=== PATIENT | female | born 1990 | race Two or more races ===

== ENCOUNTER 2016-09-28 08:44 | Emergency (ER) | payer MEDICAID ==
[~2016-09-28] VITALS: Ht 157.5 cm; Wt 58.1 kg
[~2016-09-28 08:44] MED LIST: CEPHALEXIN500 MG ORAL; NKM; ZANTAC150 MG ORAL; ZOFRAN ODT4 MG ORAL
[2016-09-28 08:46] VITALS: BP 125/81
[2016-09-28] MEDS ORDERED: ACETAMINOPHEN-1 EAC1 ORAL (09:08)
[2016-09-28] MEDS ORDERED: PREDNISONE20 MG ORAL (09:08)
[2016-09-28] MEDS ORDERED: ACYCLOVIR800 MG ORAL (09:08)
[2016-09-28] MEDS ORDERED: OFLOXACIN5 ML LEFT EAR (09:08)
[2016-09-28 09:17] VITALS: BP 126/79
--- NOTE | 2016-09-28 10:17 | Emergency Room Report ---
History of Present Illness General Chief Complaint: Pain Source: Patient Present Illness HPI 25-year-old female presents ED for evaluation. Patient states she is having pain in her left ear and swelling to the left side of her face with facial droop. States symptoms started yesterday. Patient notes symptoms started with pain in the left ear. Patient denies any fevers or chills. Denies sick contacts or recent travel. Pain is a 10 out of 10, sharp, nonradiating. No other aggravating relieving factors. Denies any other associated symptoms Allergies: Coded Allergies: No Known Allergies (Unverified , 05/26/15) Patient History Past Medical History: none Past Surgical History: none Pertinent Family History: none Social History: Denies: smoking, alcohol use, drug use Last Menstrual Period: One week ago Now: No Immunizations: UTD Reviewed Nursing Documentation: PMH: Agreed, PSxH: Agreed Nursing Documentation-PMH Past Medical History: No Stated History Review of Systems All Other Systems: negative except mentioned in HPI Physical Exam Vital Signs Date Time Temp Pulse Resp B/P (MAP) Pulse Ox O2 Delivery O2 Flow Rate FiO2 09/28/16 08:46 98.4 97 16 125/81 97 Room Air Sp02 EP Interpretation: reviewed, normal General Appearance: no apparent distress, alert, GCS 15, non-toxic Head: normocephalic Eyes: bilateral eye normal inspection, bilateral eye PERRL ENT: hearing grossly normal, normal pharynx, no angioedema, normal voice, other - vesicular lesions noted to L ear canal. swollen. TM unremarkable Neck: normal inspection Respiratory: normal inspection Cardiovascular #1: normal inspection Gastrointestinal: normal inspection Rectal: deferred Genitourinary: no CVA tenderness Musculoskeletal: normal inspection Neurologic: alert, oriented x3, responsive, motor strength/tone normal, sensory intact, speech normal Psychiatric: normal inspection Skin: normal inspection Lymphatic: normal inspection Medical Decision Making Diagnostic Impression: Primary Impression: Margot Vargas syndrome (geniculate herpes zoster) Additional Impression: Otitis externa Qualified Codes: H60.502 - Unspecified acute noninfective otitis externa, left ear ER Course Hospital Course 25-year-old M presents to ED with pain L ear. with L facial swelling, facial droop Differential diagnoses include: cellulitis, otitis media, bells palsy Clinical course Patient placed on stretcher. After initial history, physical exam reveals a young female in no acute distress. Left ear canal is erythematous and swollen. Tender to speculum insertion. There is some vesicular lesions noted to be ear canal. TM unremarkable There is some evidence of a facial droop on the left side. However patient can raise her eyebrows and close her left eye. Suspicion for bells palsy is low. However there is concern for zoster/Margot Vargas given the facial paralysis and vesicular lesions in the left ear We will treat accordingly and prescribed antivirals and prednisone. Will also prescribe ofloxacin otic. Recommend followup with PMD/ENT Diagnosis - Margot Vargas syndrome Stable and discharged to home with Rx ofloxacin otic, prednisone, acyclovir, tylenol #3. Followup with PMD. Return to ED if symptoms recur or worsen Last Vital Signs Date Time Temp Pulse Resp B/P (MAP) Pulse Ox O2 Delivery O2 Flow Rate FiO2 09/28/16 09:17 98.4 85 18 126/79 98 Room Air Status: improved Disposition: HOME, SELF-CARE Condition: Stable Scripts Acetaminophen With Codeine (T#3) (TYLENOL #3 TAB*) Y Tab 1 TAB ORAL Q8H Y for For Pain, #20 TAB Prov: SARIKA PA M.D. 09/28/16 Prednisone* (PREDNISONE*) 20 Mg Tablet 40 MG ORAL DAILY, #10 TAB Prov: SARIKA PA M.D. 09/28/16 Acyclovir* (ZOVIRAX*) 800 Mg Tablet 800 MG ORAL FIVE TIMES A DAY for 7 Days, TAB Prov: SARIKA PA M.D. 09/28/16 Ofloxacin (OFLOXACIN) 5 Ml Drops 10 DROP LEFT EAR BID for 10 Days, ML Prov: SARIKA PA M.D. 09/28/16 Patient Instructions: Margot Vargas Syndrome, Anderson Palsy, Otitis Externa, Easy-to -Read SARIKA PA M.D. Sep 28, 2016 10:17
== END 2016-09-28 09:17 | disposition home or self-care (01) ==
LOC: EMR 09:02
DX: H92.02 Otalgia, left ear (principal); B02.21 Postherpetic geniculate ganglionitis; H60.92 Unspecified otitis externa, left ear; R22.0 Localized swelling, mass and lump, head; R29.810 Facial weakness
CPT/HCPCS: 99284

== ENCOUNTER 2017-04-05 12:22 | Emergency (ER) | payer SELFPAY ==
[~2017-04-05] VITALS: Ht 160 cm; Wt 56.7 kg
[~2017-04-05 12:22] MED LIST changes: +ACETAMINOPHEN-1 EAC1 ORAL; +ACYCLOVIR800 MG ORAL; +OFLOXACIN5 ML LEFT EAR; +PREDNISONE20 MG ORAL
--- NOTE | 2017-04-05 13:34 | Emergency Room Report ---
History of Present Illness General Chief Complaint: General Complaint Source: Patient Present Illness HPI 26-year-old female presenting with 3 days of intermittent cheek tingling, some fever and chills, also states that her up her back is sore. Denies any chest pain abdominal pain nausea vomiting or diarrhea. No neck pain Allergies: Coded Allergies: No Known Allergies (Unverified , 05/26/15) Patient History Past Medical History: see triage record Past Surgical History: none Pertinent Family History: none Last Menstrual Period: 03/12/17 Now: No : 3 Para: 0 Reviewed Nursing Documentation: PMH: Agreed, PSxH: Agreed Nursing Documentation-PMH Past Medical History: No Stated History Review of Systems All Other Systems: negative except mentioned in HPI Physical Exam Vital Signs Date Time Temp Pulse Resp B/P (MAP) Pulse Ox O2 Delivery O2 Flow Rate FiO2 04/05/17 12:28 100.4 113 17 146/83 100 Room Air 100.4 Sp02 EP Interpretation: reviewed, normal General Appearance: normal inspection, well appearing, no apparent distress, alert, GCS 15, non-toxic Head: normocephalic, atraumatic Eyes: bilateral eye normal inspection, bilateral eye PERRL, bilateral eye EOMI ENT: normal ENT inspection, normal pharynx, normal voice, moist mucus membranes Neck: normal inspection, full range of motion, supple Respiratory: normal inspection, lungs clear, normal breath sounds, no respiratory distress, no retraction, no wheezing, speaking full sentences, chest symmetrical Cardiovascular #1: normal inspection, regular rate, rhythm, no edema, normal capillary refill Cardiovascular #2: 2+ radial (R), 2+ radial (L) Gastrointestinal: normal inspection, non tender, soft, non-distended, no guarding Musculoskeletal: normal inspection, back normal, normal range of motion, non- tender Neurologic: normal inspection, alert, oriented x3, responsive, motor strength/ tone normal, sensory intact, normal gait, speech normal Psychiatric: normal inspection, judgement/insight normal, memory normal Skin: normal inspection, normal color, no rash, warm/dry, well hydrated, normal turgor Medical Decision Making Diagnostic Impression: Primary Impression: Encounter for generalized patient complaints Additional Impressions: UTI (urinary tract infection) Fever ER Course 26-year-old female with bilateral cheek tingling Also found to be febrile Upper back soreness DDX: The patient does not appear toxic at this time, fever possibly early viral syndrome, patient nontoxic and not experiencing any nuchal rigidity no neurological symptoms or concern for meningitis. No midline tenderness to suggest epidural abscess Patient w bilateral cheek tingling but no numbness at this time Plan: UA, Motrin ER course: Patient has remained stable during ED stay. ua positive Disposition: Patient is to be discharged to home. Prescriptions given are Motrin and keflex Patient is instructed to follow up with their primary care doctor within 5 days. Strict return precautions discussed with patient such as intractable fever, chills, worsening/severe pain, chest pain, SOB, nausea, vomiting, which may indicate severe illness. Patient verbalizes understanding and agrees with plan. Please note that this Emergency Department Report was dictated using [employer] technology software, occasionally this can lead to erroneous entry secondary to interpretation by the dictation equipment Laboratory Tests Test 04/05/17 12:55 Urine Color Yellow Urine Appearance Turbid Urine pH 5 (4.5-8.0) Urine Specific [place] 1.020 (1.005-1.035) Urine Protein 1+ (NEGATIVE) H Urine Glucose (UA) Negative (NEGATIVE) Urine Ketones 4+ (NEGATIVE) H Urine Occult Blood 2+ (NEGATIVE) H Urine Nitrite Positive (NEGATIVE) H Urine Bilirubin Negative (NEGATIVE) Urine Urobilinogen 1 MG/DL (0.0-1.0) H Urine Leukocyte Esterase 2+ (NEGATIVE) H Urine RBC Pending Urine WBC Pending Urine Squamous Epithelial Cells Pending Urine Bacteria Pending Last Vital Signs Date Time Temp Pulse Resp B/P (MAP) Pulse Ox O2 Delivery O2 Flow Rate FiO2 04/05/17 13:00 100.4 04/05/17 12:28 113 17 146/83 100 Room Air Disposition: HOME, SELF-CARE Condition: Improved Scripts Cephalexin* (KEFLEX*) 500 Mg Capsule 500 MG ORAL Q6H, #28 CAP 0 Refills Prov: RetinoCullense Horacio.DDominga 04/05/17 Ibuprofen* (MOTRIN*) 600 Mg Tablet 600 MG ORAL Q8H Y for For Pain, #30 TAB 0 Refills Prov: RetinoLewisirose M.D. 04/05/17 Referrals: NOT CHOSEN IPA/MD,REFERRING (PCP) Patient Instructions: Fever, Adult, Paresthesia, [id number] RetinoMathewD. Apr 05, 2017 13:34
[2017-04-05] MEDS ORDERED: IBUPROFEN600 MG ORAL (13:35)
[2017-04-05 13:41] LABS: APPEARANCE,URINE TURBID; BILIRUBIN, URINE NEGATIVE (NEGATIVE); GLUCOSE, URINE (UA) NEGATIVE (NEGATIVE); KETONES,URINE 4+ (NEGATIVE); LEUKOCYTE ESTERASE ,URINE 2+ (NEGATIVE); NITRITE,URINE POSITIVE (NEGATIVE); PH,URINE 5 (4.5-8.0); PROTEIN,URINE 1+ (NEGATIVE); UROBILINOGEN,URINE 1 MG/DL (0.0-1.0)
[2017-04-05 13:51] VITALS: BP 138/75
[2017-04-05 13:53] VITALS: BP 135/85
[2017-04-05 13:55] LABS: COLOR,URINE YELLOW
[2017-04-05] MEDS ORDERED: KEFLEX500 MG ORAL (14:22)
== END 2017-04-05 13:55 | disposition home or self-care (01) ==
LOC: EMR 13:01
DX: N39.0 Urinary tract infection, site not specified (principal); R20.2 Paresthesia of skin
CPT/HCPCS: 81003; 87086; 87181; 99283